=== PATIENT | male | born 1990 | race Caucasian/White ===

== ENCOUNTER 2017-10-02 18:42 | Emergency (ER) | payer SELFPAY ==
[2017-10-02 18:48] VITALS: BP 123/73
[2017-10-02] MEDS ORDERED: HYDROCODONE/ACETAMINOPHEN 5-325 MG (6 TAB/ER DISP) PO PRN (20:13)
[2017-10-02] MEDS ORDERED: CLINDAMYCIN HCL 150 MG CAPSULE PO ONE (20:13)
--- NOTE | 2017-10-02 20:16 | ER Document Report ---
HPI - HPI Patient complains to provider of: Dental pain Onset: Other - 3 days Onset/Duration: Persistent Quality of pain: Achy Pain Level: 3 Context: Patient had recent dental extraction 3 days ago and states that the adjacent tooth was broken during the procedure. Patient was not discharged with any pain medication or antibiotics. Patient states that he has had lower jaw swelling and increased dental pain. Patient is uncertain if he may have been having a fever or not. Patient is visiting here from out of town. Patient does plan to see his dentist in 5 days. Associated Symptoms: Other - Dental pain. denies: Fever Exacerbated by: Denies Relieved by: Denies Similar symptoms previously: No Recently seen / treated by doctor: Yes - ROS ROS below otherwise negative: Yes Systems Reviewed and Negative: Yes All other systems reviewed and negative - CONSTITUTIONAL Constitutional: DENIES: Fever - EENT Notes: Dental pain - RESPIRATORY Respiratory: DENIES: Coughing - GASTROINTESTINAL Gastrointestinal: DENIES: Nausea, Patient vomiting - REPRODUCTIVE Reproductive: DENIES: : - MUSCULOSKELETAL Musculoskeletal: DENIES: Neck Pain - DERM Skin Color: Normal Skin Problems: None Past Medical History - General Information source: Patient - Social History Smoking Status: Current Every Day Smoker Chew tobacco use (# tins/day): No Smoking Education Provided: Yes Frequency of alcohol use: None Drug Abuse: None Lives with: Family Family History: Arthritis, CVA. denies: CAD, COPD, DM, Hyperlipidemia, Hypertension, Malignancy, Thyroid Disfunction Patient has suicidal ideation: No Patient has homicidal ideation: No Renal/ Medical History: Reports: Hx Hydrocele. Denies: Hx Peritoneal Dialysis GI Medical History: Reports: Hx Irritable Bowel Musculoskeletal Medical History: Reports Hx Arthritis, Reports Hx Musculoskeletal Trauma Traumatic Medical History: Reports: Hx Fractures Past Surgical History: Reports: Hx Orthopedic Surgery - dislocated ankle repaired 2013 - Immunizations Immunizations up to date: Yes Hx Diphtheria, Pertussis, Tetanus Vaccination: Yes - 2014 Vertical Provider Document - CONSTITUTIONAL Agree With Documented VS: Yes Exam Limitations: No Limitations General Appearance: WD/WN, No Apparent Distress - INFECTION CONTROL TRAVEL OUTSIDE OF THE [place] IN LAST 30 DAYS: No - HEENT HEENT: Atraumatic, Normocephalic Mouth Diagram: 1 - Status post extraction, gingival inflammation, no drainable abscess Notes: Subtle swelling noted to the right mandible - NECK Neck: Normal Inspection, Supple. negative: Lymphadenopathy-Left, Lymphadenopathy-Right - RESPIRATORY Respiratory: Breath Sounds Normal, No Respiratory Distress - CARDIOVASCULAR Cardiovascular: Regular Rate, Regular Rhythm - BACK Back: Normal Inspection - MUSCULOSKELETAL/EXTREMETIES Musculoskeletal/Extremeties: MAEW - NEURO Level of Consciousness: Awake, Alert, Appropriate Motor/Sensory: No Motor Deficit - DERM Integumentary: Warm, Dry Course - Vital Signs Vital signs: Temp Pulse Resp BP Pulse Ox 98.9 F 83 16 123/73 100 10/02/17 18:46 10/02/17 18:46 10/02/17 18:46 10/02/17 18:46 10/02/17 18:46 Discharge - Discharge Clinical Impression: Pain, dental, hx recent dental extraction Condition: Stable Disposition: HOME, SELF-CARE Instructions: Clindamycin ([facility]), Dental Infection or Abscess ([facility]), Oral Narcotic Medication ([facility]) Additional Instructions: Return immediately for any new or worsening symptoms Followup with your primary care provider, call tomorrow to make a followup appointment Prescriptions: Clindamycin HCl [Cleocin 300 mg Capsule] 300 mg PO TID #21 capsule Naproxen [Naprosyn 250 Nmg Tablet] 1 tab PO BID #14 tablet Forms: Smoking Cessation Education Referrals: [facility] [Provider Group] - Follow up as needed
== END 2017-10-02 20:37 | disposition home or self-care (01) ==
LOC: ER 18:42
DX: K08.89 Other specified disorders of teeth and supporting structures (principal); R22.0 Localized swelling, mass and lump, head; F17.200 Nicotine dependence, unspecified, uncomplicated
CPT/HCPCS: 99282

== ENCOUNTER 2017-12-09 18:24 | Emergency (ER) | payer SELFPAY ==
--- NOTE | 2017-12-09 22:26 | ER Document Report ---
HPI - HPI Patient complains to provider of: Sore throat Pain Level: 4 Context: Patient is a 27-year-old presenting to the emergency department complaining of a sore throat for the last 3 days. Patient also complains of congestion. Patient denies fever or cough. Patient also denies nausea, vomiting, diarrhea. Patient denies chest pain, shortness of breath. Past medical history: None Medications: None allergies: None Surgical history: None Patient admits to everyday cigarette smoking, denies illicit drug use, denies EtOH use. - EENT EENT: REPORTS: Sore Throat - REPRODUCTIVE Reproductive: DENIES: : Past Medical History - General Information source: Patient - Social History Smoking Status: Current Every Day Smoker Frequency of alcohol use: None Drug Abuse: None Lives with: Family Family History: Arthritis, CVA. denies: CAD, COPD, DM, Hyperlipidemia, Hypertension, Malignancy, Thyroid Disfunction Patient has suicidal ideation: No Patient has homicidal ideation: No Renal/ Medical History: Reports: Hx Hydrocele. Denies: Hx Peritoneal Dialysis GI Medical History: Reports: Hx Irritable Bowel Musculoskeletal Medical History: Reports Hx Arthritis, Reports Hx Musculoskeletal Trauma Traumatic Medical History: Reports: Hx Fractures Past Surgical History: Reports: Hx Orthopedic Surgery - dislocated ankle repaired 2012 - Immunizations Immunizations up to date: Yes Hx Diphtheria, Pertussis, Tetanus Vaccination: Yes - 2014 Vertical Provider Document - CONSTITUTIONAL Agree With Documented VS: Yes Notes: GENERAL: Alert, interacts well. No acute distress. HEAD: Normocephalic, atraumatic. EYES: Pupils equal, round, and reactive to light. Extraocular movements intact. ENT: Oral mucosa moist, tongue midline. Nares patent, TM's intact, no erythema or bulging. Pharynx erythematous, tonsils +2 bilaterally, no exudate noted, no palatal petechiae. NECK: Full range of motion. Supple. Trachea midline. No lymphadenopathy appreciated. LUNGS: Clear to auscultation bilaterally, no wheezes, rales, or rhonchi. No respiratory distress. HEART: Regular rate and rhythm. No murmur ABDOMEN: Soft, non-tender. Non-distended. Bowel sounds present in all 4 quadrants. EXTREMITIES: Moves all 4 extremities spontaneously. No edema, normal radial and dorsalis pedis pulses bilaterally. No cyanosis. BACK: no cervical, thoracic, lumbar midline tenderness. No saddle anesthesia, normal distal neurovascular exam. NEUROLOGICAL: Alert and oriented x3. Normal speech. cranial nerves II through XII grossly intact. PSYCH: Normal affect, normal mood. SKIN: Warm, dry, normal turgor. No rashes or lesions noted. - INFECTION CONTROL TRAVEL OUTSIDE OF THE [place] IN LAST 30 DAYS: No Course - Re-evaluation Re-evalutation: 12/09/17 22:26 Patient's rapid strep came back positive. Will treat with amoxicillin. Return precautions discussed. - Vital Signs Vital signs: Temp Pulse Resp BP Pulse Ox 98.8 F 93 18 118/72 98 12/09/17 18:30 12/09/17 18:30 12/09/17 18:30 12/09/17 18:30 12/09/17 18:30 Discharge - Discharge Clinical Impression: Strep pharyngitis Condition: Stable Disposition: HOME, SELF-CARE Instructions: Strep Throat ([facility]) Prescriptions: Penicillin V Potassium [Penicillin Vk 500 mg Tablet] 500 mg PO BID #20 tablet
[2017-12-09] MEDS ORDERED: PENICILLIN V POTASSIUM 500 MG TABLET PO ONE (22:28)
[2017-12-09] MEDS ORDERED: IBUPROFEN 800 MG TABLET PO ONE (22:28)
[2017-12-09 22:38] VITALS: BP 118/75
== END 2017-12-09 22:38 | disposition home or self-care (01) ==
LOC: ER 18:24
DX: J02.0 Streptococcal pharyngitis (principal); F17.210 Nicotine dependence, cigarettes, uncomplicated
CPT/HCPCS: 87880; 99283

== ENCOUNTER 2018-03-26 20:34 | Emergency (ER) | payer SELFPAY ==
[2018-03-27] MEDS ORDERED: LIDOCAINE 2% VISCOUS SOLN 20 ML UDCUP PO ONE (01:33)
[2018-03-27] MEDS ORDERED: PENICILLIN V POTASSIUM 500 MG TABLET PO ONE (01:33)
--- NOTE | 2018-03-27 01:39 | ER Document Report ---
HPI - HPI Patient complains to provider of: tooth pain Time Seen by Provider: 03/27/18 01:06 Pain Level: 5 Context: 28 male with history of tooth infections presents for tooth pain that has been going on for the last few weeks. Pain got excruciatingly worse last 2 days prompting him to seek care. He denies fevers, complains of chills, denies trismus, denies any systemic type infection, is able to move his neck and denies neck stiffness, denies any foul taste in his mouth. Patient denies dysphagia, shortness of breath or chest pain, nausea or vomiting. - REPRODUCTIVE Reproductive: DENIES: : Past Medical History - Social History Smoking Status: Unknown if Ever Smoked Family History: Arthritis, CVA. denies: CAD, COPD, DM, Hyperlipidemia, Hypertension, Malignancy, Thyroid Disfunction Patient has suicidal ideation: No Patient has homicidal ideation: No Renal/ Medical History: Reports: Hx Hydrocele. Denies: Hx Peritoneal Dialysis GI Medical History: Reports: Hx Irritable Bowel Musculoskeletal Medical History: Reports Hx Arthritis, Reports Hx Musculoskeletal Trauma Traumatic Medical History: Reports: Hx Fractures Past Surgical History: Reports: Hx Orthopedic Surgery - dislocated ankle repaired 2013 - Immunizations Immunizations up to date: Yes Hx Diphtheria, Pertussis, Tetanus Vaccination: Yes - 2015 Vertical Provider Document - INFECTION CONTROL TRAVEL OUTSIDE OF THE [place] IN LAST 30 DAYS: No - HEENT Mouth Diagram: 1 - Broken and decayed numbers 30 and 31 teeth. Associated gingivitis surrounding the teeth on the buccal side. No evidence of purulent discharge. Course - Re-evaluation Re-evalutation: 03/27/18 01:35 Presentation is most consistent with likely an infected tooth. Airway is patent. Vitals within normal limits. Patient is able swallow without any difficulty. There is no significant facial swelling. No evidence of [place] angina, apical abscess, or airway obstruction. Patient will be started on antibiotics. I've instructed to follow-up with dentistry as earliest ability for definitive management. At this time will discharge with return precautions and follow-up recommendations. Verbal discharge instructions given a the bedside and opportunity for questions given. Medication warnings reviewed. Patient is in agreement with this plan and has verbalized understanding of return precautions and the need for primary care follow-up in the next 24-72 h ours. - Vital Signs Vital signs: Temp Pulse Resp BP Pulse Ox 98.4 F 103 H 18 117/77 100 03/26/18 20:36 03/26/18 20:36 03/26/18 20:36 03/26/18 20:36 03/26/18 20:36 Discharge - Discharge Clinical Impression: Tooth infection Condition: Good Disposition: HOME, SELF-CARE Instructions: [facility], Penicillin V K ([facility]), Toothache ([facility]) Additional Instructions: You have been seen for dental pain. It is very important that you follow-up with a dentist for definitive care. Please return if you develop fever greater than 101, swelling in your face, vomiting, difficulty breathing or swallowing, or any other symptoms that are concerning to you. For pain you should take ibuprofen 600 mg every 6 hours as needed. Prescriptions: Penicillin V Potassium [Penicillin Vk 500 mg Tablet] 500 mg PO BID #14 tablet
[2018-03-27 01:57] VITALS: BP 113/78
== END 2018-03-27 01:58 | disposition home or self-care (01) ==
LOC: ER 20:34
DX: K04.7 Periapical abscess without sinus (principal); K08.89 Other specified disorders of teeth and supporting structures
CPT/HCPCS: 99282; J3490

== ENCOUNTER 2018-05-23 16:08 | Emergency (ER) | payer SELFPAY ==
--- NOTE | 2018-05-23 17:14 | ER Document Report ---
ED Medical Screen (RME) - General Chief Complaint: Chest Pain Stated Complaint: CHEST PAIN Time Seen by Provider: 05/23/18 17:05 Mode of Arrival: Ambulatory Information source: Patient Notes: Patient is an otherwise healthy 20-year-old male who presents with midsternal chest pain that has been ongoing for 1 year with worsening over the last few months. He states the last few days is the worse it has ever been. He reports occasional left arm pains in the bicep area. He states there is never been any nausea but does report occasional shortness of breath and wakes up in a cold sweat sometimes at night. Patient denies any history of any drug use to include cocaine. Denies any past medical history, does not take any medications daily and has no drug allergies. Exam: Lung sounds clear to auscultation bilaterally. Heart sounds S1-S2 present with no ectopy noted. I have greeted and performed a rapid initial assessment of this patient. A comprehensive ED assessment and evaluation of the patient, analysis of test results and completion of the medical decision making process will be conducted by additional ED providers. Dictation of this chart was performed using voice recognition software; therefore, there may be some unintended grammatical errors. TRAVEL OUTSIDE OF THE [place] IN LAST 30 DAYS: No - Related Data Allergies/Adverse Reactions: No Known Allergies Allergy (Verified 03/26/18 20:35) Past Medical History - Social History Frequency of alcohol use: None Drug Abuse: None Renal/ Medical History: Reports: Hx Hydrocele. Denies: Hx Peritoneal Dialysis GI Medical History: Reports: Hx Irritable Bowel Musculoskeltal Medical History: Reports Hx Arthritis, Reports Hx Musculoskeletal Trauma Traumatic Medical History: Reports: Hx Fractures Past Surgical History: Reports: Hx Orthopedic Surgery - dislocated ankle repaired 2012 - Immunizations Immunizations up to date: Yes Hx Diphtheria, Pertussis, Tetanus Vaccination: Yes - 2014 Physical Exam - Vital signs Vitals: Temp Pulse Resp BP Pulse Ox 98.7 F 93 18 128/73 H 99 05/23/18 16:23 05/23/18 16:23 05/23/18 16:23 05/23/18 16:23 05/23/18 16:23 Course - Vital Signs Vital signs: Temp Pulse Resp BP Pulse Ox 98.7 F 93 18 128/73 H 99 05/23/18 16:23 05/23/18 16:23 05/23/18 16:23 05/23/18 16:23 05/23/18 16:23
--- NOTE | 2018-05-23 17:46 | RADIOLOGY REPORT (SQ) ---
EXAM DESCRIPTION: CHEST 2 VIEWS COMPLETED DATE/TIME: 05/23/2018 5:33 pm REASON FOR STUDY: chest pain COMPARISON: None. EXAM PARAMETERS: NUMBER OF VIEWS: two views TECHNIQUE: Digital Frontal and Lateral radiographic views of the chest acquired. RADIATION DOSE: NA LIMITATIONS: none FINDINGS: LUNGS AND PLEURA: No opacities, masses or pneumothorax. No pleural effusion. MEDIASTINUM AND HILAR STRUCTURES: No masses or contour abnormalities. HEART AND VASCULAR STRUCTURES: Heart normal size. No evidence for failure. BONES: No acute findings. HARDWARE: None in the chest. OTHER: No other significant finding. IMPRESSION: NO ACUTE RADIOGRAPHIC FINDING IN THE CHEST. TECHNICAL DOCUMENTATION: JOB ID: [id number] [employer]- All Rights Reserved Reading location - IP/workstation name: [email or web address]
--- NOTE | 2018-05-23 18:36 | EKG REPORT ---
SEVERITY:- NORMAL ECG - SINUS RHYTHM : Confirmed by: Guanakito Day MD 23-May-2018 18:34:50
--- NOTE | 2018-05-23 20:23 | ER Document Report ---
Addendum entered and electronically signed by RAMSEY MENARD PA-C 05/23/18 22:47: Discharge - Discharge Clinical Impression: Atypical chest pain Condition: Good Disposition: HOME, SELF-CARE Instructions: Chest Pain of Unclear Cause ([facility]) Additional Instructions: I will give you to clinics to consider where you will be able to do further workup and possibly even do the stress test. I will also give the name of a rock drill operator locally. He get worsening symptoms before you can see anybody and you feel you need to be seen, you may return to the ED. Prescriptions: Tramadol HCl/Acetaminophen [Ultracet 37.5 mg/325 mg Tablet] 1 each PO Q6HP PRN #12 tablet PRN Reason: Referrals: [facility] [Provider Group] - Follow up as needed [facility] [Provider Group] - Follow up as needed GENESIS JEROME MD [ACTIVE STAFF] - Follow up as needed Print Language: Korean Original Note: ED General - General Chief Complaint: Chest Pain Stated Complaint: CHEST PAIN Time Seen by Provider: 05/23/18 17:05 Mode of Arrival: Ambulatory Information source: Patient TRAVEL OUTSIDE OF THE [place] IN LAST 30 DAYS: No - HPI Patient complains to provider of: Chest pain Onset: Other - 1 year Onset/Duration: Intermittent Quality of pain: Sharp, Stabbing Severity: Severe Pain Level: 3 Associated symptoms: None Exacerbated by: Denies Relieved by: Denies Similar symptoms previously: No Recently seen / treated by doctor: No Notes: 28-year-old male coming in today with chest pain that has had intermittently for the past year. Over the past 3 days he started to have increasing intensity of sharp midsternal chest pain that radiates to his back. It is also worse with deep breathing. Also smokes cigarettes daily - Related Data Allergies/Adverse Reactions: No Known Allergies Allergy (Verified 03/26/18 20:35) Past Medical History - General Information source: Patient - Social History Smoking Status: Current Every Day Smoker Frequency of alcohol use: None Drug Abuse: None Family History: Arthritis, CVA. denies: CAD, COPD, DM, Hyperlipidemia, Hypertension, Malignancy, Thyroid Disfunction Patient has suicidal ideation: No Patient has homicidal ideation: No Renal/ Medical History: Reports: Hx Hydrocele. Denies: Hx Peritoneal Dialysis GI Medical History: Reports: Hx Irritable Bowel Musculoskeletal Medical History: Reports Hx Arthritis, Reports Hx Musculoskeletal Trauma Traumatic Medical History: Reports: Hx Fractures Past Surgical History: Reports: Hx Orthopedic Surgery - dislocated ankle repaired 2012 - Immunizations Immunizations up to date: Yes Hx Diphtheria, Pertussis, Tetanus Vaccination: Yes - 2014 Review of Systems - Review of Systems Notes: Constitutional: No fevers. No chills. EENT: No eye redness. No eye pain. No ear pain. No sore throat. Cardiovascular: Positive for chest pain. No palpitations. Respiratory: No cough. No shortness of breath. No respiratory distress. Gastrointestinal: No abdominal pain. No nausea, vomiting, or diarrhea. Genitourinary: Atraumatic. No lesions. No pain. No discharge. Musculoskeletal: Atraumatic. No swelling. No deformities. Skin: No rash or lesions. Lymphatic: No swollen lymph nodes. Neurologic: No headache. No syncope. Psychiatric: No suicidal or homicidal ideation. Physical Exam - Vital signs Vitals: Temp Pulse Resp BP Pulse Ox 98.7 F 93 18 128/73 H 99 05/23/18 16:23 05/23/18 16:23 05/23/18 16:23 05/23/18 16:23 05/23/18 16:23 - Notes Notes: General: Well-developed, well-nourished. In no acute distress. Non-toxic appearing. Cardiac: Well-perfused. Regular rate and rhythm. No murmurs, rubs, or gallops. Pulmonary: No respiratory distress. No cyanosis. Bilateral lung garza are clear to auscultation. Abdominal: Non-distended. Non-rigid. Bowels sounds are present in all four quadrants. No guarding or rebound. HEENT: Head is atraumatic. Conjunctivae not reddened. No tearing. PERRL. EOMI. Orbits atraumatic. No periorbital swelling or erythema. Oropharynx is without erythema, swelling, or exudates. Neck: Supple. No adenopathy. No meningismus. Dermatologic: Warm with good turgor. No rash. Atraumatic. Chest: Atraumatic. No chest wall tenderness to palpation. Musculoskeletal: Moves all extremities well. No range of motion deficits. no muscular or joint tenderness. No paraspinal muscle tenderness. no midline spinal tenderness or step-off. There is no chest wall tenderness to palpation. Genitourinary: Examination deferred Neurologic: No gross neurologic deficits. Psychiatric: Normal mood. Course - Re-evaluation Re-evalutation: 05/23/18 20:21 Most likely this is atypical chest pain however will do the typical workup. Heart score is 1. In any event, I do not think the patient can feel totally better about this until he sees somebody for a stress test. 05/23/18 22:06 Workup is negative. I think this is probably chest wall or pleuritic in nature. I will refer to cardiology - Vital Signs Vital signs: Temp Pulse Resp BP Pulse Ox 98.7 F 93 18 128/73 H 99 05/23/18 16:23 05/23/18 16:23 05/23/18 16:23 05/23/18 16:23 05/23/18 16:23 - Laboratory Result Diagrams: 05/23/18 20:24 05/23/18 20:24 Laboratory results interpreted by me: 05/23/18 20:24 Chloride 109 H Total Protein 6.2 L - Diagnostic Test Radiology reviewed: Reports reviewed - EKG Interpretation by [facility] EKG shows normal: Sinus rhythm, Stone, Intervals, QRS Complexes, ST-T Waves Discharge - Discharge Clinical Impression: Atypical chest pain Condition: Good Disposition: HOME, SELF-CARE Instructions: Chest Pain of Unclear Cause ([facility]) Additional Instructions: I will give you to clinics to consider where you will be able to do further workup and possibly even do the stress test. I will also give the name of a rock drill operator locally. He get worsening symptoms before you can see anybody and you feel you need to be seen, you may return to the ED. Referrals: GENESIS JEROME MD [ACTIVE STAFF] - Follow up as needed [facility] [Provider Group] - Follow up as needed [facility] [Provider Group] - Follow up as needed Print Language: Korean
[2018-05-23] MEDS ORDERED: HYDROCODONE/ACETAMINOPHEN 5-325 MG TABLET PO ONE (20:29)
[2018-05-23 20:38] LABS: ABSOLUTE BASOPHILS # (AUTO) 0.1 10^3/uL (0.0-0.2); ABSOLUTE EOSINOPHILS # (AUTO) 0.1 10^3/uL (0.0-0.6); ABSOLUTE LYMPHOCYTES (AUTO) 2.3 10^3/uL (0.5-4.7); ABSOLUTE MONOCYTES (AUTO) 0.6 10^3/uL (0.1-1.4); ABSOLUTE NEUT (AUTO) 5.6 10^3/uL (1.7-8.2); BASOPHILS % (AUTO) 0.7 % (0-2); EOSINOPHILS % (AUTO) 1.6 % (0-6); HEMATOCRIT 43.8 % (37.9-51.0); HEMOGLOBIN 15.1 g/dL (13.5-17.0); LYMPHOCYTES % (AUTO) 26.1 % (13-45); MEAN CORPUSCULAR HEMOGLOBIN 30.5 pg (27.0-33.4); MEAN CORPUSCULAR HGB CONC 34.4 g/dL (32.0-36.0); MEAN CORPUSCULAR VOLUME 89 fl (80-97); PLATELET COUNT 287 10^3/uL (150-450); RED BLOOD COUNT 4.94 10^6/uL (4.35-5.55); RED CELL DISTRIBUTION WIDTH 12.9 % (11.5-14.0); SEGMENTED NEUTROPHILS % (AUTO) 64.6 % (42-78); TOTAL CELLS COUNTED % (AUTO) 100 %; WHITE BLOOD COUNT 8.6 10^3/uL (4.0-10.5)
[2018-05-23 20:51] LABS: ALANINE AMINOTRANSFERASE 23 U/L (21-72); ALKALINE PHOSPHATASE 50 U/L (38-126); ANION GAP 7 (5-19); ASPARTATE AMINO TRANSFERASE 17 U/L (17-59); BILIRUBIN,DIRECT 0.2 mg/dL (0.0-0.4); BILIRUBIN,TOTAL 0.4 mg/dL (0.2-1.3); BLOOD UREA NITROGEN 13 mg/dL (7-20); CALCIUM 9.6 mg/dL (8.4-10.2); CARBON DIOXIDE 26 mmol/L (22-30); CHLORIDE 109 mmol/L (98-107); GLUCOSE 96 mg/dL (75-110); POTASSIUM 4.2 mmol/L (3.6-5.0); SODIUM 142.2 mmol/L (137-145); TOTAL PROTEIN 6.2 g/dL (6.3-8.2)
[2018-05-23 22:35] VITALS: BP 107/80
== END 2018-05-23 23:03 | disposition home or self-care (01) ==
LOC: ER 16:08
DX: R07.89 Other chest pain (principal); F17.210 Nicotine dependence, cigarettes, uncomplicated
CPT/HCPCS: 36415; 71046; 80053; 84484; 85025; 93005; 93010; 99285

== ENCOUNTER 2018-11-04 17:18 | Emergency (ER) | payer SELFPAY ==
[2018-11-04] MEDS ORDERED: KETOROLAC TROMETHAMINE INJ/PF 30 MG/1 ML SDV IV ONE (17:49)
[2018-11-04] MEDS ORDERED: PROCHLORPERAZINE EDISYLATE INJ 10 MG/2 ML VIAL IV ONE (17:49)
--- NOTE | 2018-11-04 17:52 | ER Document Report ---
ED Medical Screen (RME) - General Chief Complaint: Eye Problem Stated Complaint: EYE PAIN Time Seen by Provider: 11/04/18 17:42 TRAVEL OUTSIDE OF THE [place] IN LAST 30 DAYS: No - HPI Notes: 11/04/18 17:50 Patient is a 28-year-old male who presents with multiple complaints. Patient has been having left eye blurring and spots in his vision as well as "floaters" for the past couple days with a left-sided headache. Patient states that this is not the worst headache of his life and it did not start as a thunderclap. Patient has had migraines in the past. He is also complaining of having night sweats every night for the past 2 weeks as well as left lower abdominal soreness. Pain is not sharp and does not radiate. Denies fever, neck pain, URI, CP, SOB, n/v/d, dysuria, back pain, or rash. I have treated and performed a rapid initial assessment of this patient. A comprehensive ED assessment and evaluation of the patient, analysis of test results and completion of medical decision making process will be conducted by additional ED providers. PHYSICAL EXAMINATION: GENERAL: Well-appearing, well-nourished and in no acute distress. A&Ox4. Answers questions appropriately. Eyes: PERRLA, EOMI b/l. no significant redness LUNGS: Breath sounds clear to auscultation bilaterally and equal. No wheezes rales or rhonchi. HEART: Regular rate and rhythm without murmurs, rubs, gallops. ABDOMEN: Soft, nondistended abdomen. No guarding, no rebound. Normal bowel sounds present. No CVA tenderness bilaterally. + mild left lower/mid tenderness (cannot elicit thorough abd exam w/o bed, however). Extremities: No cyanosis, clubbing, or edema b/l. NEUROLOGICAL: Normal speech, normal gait. Cranial nerves grossly intact PSYCH: Normal mood, normal affect. - Related Data Allergies/Adverse Reactions: No Known Allergies Allergy (Verified 11/04/18 17:23) Past Medical History - Social History Chew tobacco use (# tins/day): No Frequency of alcohol use: Social Renal/ Medical History: Reports: Hx Hydrocele. Denies: Hx Peritoneal Dialysis GI Medical History: Reports: Hx Irritable Bowel Musculoskeltal Medical History: Reports Hx Arthritis, Reports Hx Musculoskeletal Trauma Traumatic Medical History: Reports: Hx Fractures Past Surgical History: Reports: Hx Orthopedic Surgery - dislocated ankle repaired 2013 - Immunizations Immunizations up to date: Yes Hx Diphtheria, Pertussis, Tetanus Vaccination: Yes - 2014 Physical Exam - Vital signs Vitals: Temp Pulse Resp BP Pulse Ox 98.2 F 81 14 110/75 97 11/04/18 17:30 11/04/18 17:30 11/04/18 17:30 11/04/18 17:30 11/04/18 17:30 Course - Vital Signs Vital signs: Temp Pulse Resp BP Pulse Ox 98.2 F 81 14 110/75 97 11/04/18 17:30 11/04/18 17:30 11/04/18 17:30 11/04/18 17:30 11/04/18 17:30
[2018-11-04 18:47] LABS: ABSOLUTE EOSINOPHILS # (AUTO) 0.1 10^3/uL (0.0-0.6); ABSOLUTE LYMPHOCYTES (AUTO) 2.3 10^3/uL (0.5-4.7); ABSOLUTE MONOCYTES (AUTO) 0.8 10^3/uL (0.1-1.4); BASOPHILS % (AUTO) 0.6 % (0-2); EOSINOPHILS % (AUTO) 1.2 % (0-6); HEMATOCRIT 43.1 % (37.9-51.0); HEMOGLOBIN 14.6 g/dL (13.5-17.0); MEAN CORPUSCULAR HEMOGLOBIN 29.7 pg (27.0-33.4); MEAN CORPUSCULAR HGB CONC 33.9 g/dL (32.0-36.0); MEAN CORPUSCULAR VOLUME 88 fl (80-97); PLATELET COUNT 331 10^3/uL (150-450); RED BLOOD COUNT 4.92 10^6/uL (4.35-5.55); RED CELL DISTRIBUTION WIDTH 12.7 % (11.5-14.0); SEGMENTED NEUTROPHILS % (AUTO) 55.2 % (42-78); TOTAL CELLS COUNTED % (AUTO) 100 %; WHITE BLOOD COUNT 7.3 10^3/uL (4.0-10.5)
[2018-11-04 18:55] LABS: APPEARANCE,URINE CLEAR; BILIRUBIN,URINE NEGATIVE (NEGATIVE); COLOR,URINE YELLOW; GLUCOSE, URINE NEGATIVE (NEGATIVE); KETONES,URINE NEGATIVE (NEGATIVE); LEUKOCYTE ESTERASE,URINE NEGATIVE (NEGATIVE); NITRITE,URINE NEGATIVE (NEGATIVE); PROTEIN,URINE NEGATIVE (NEGATIVE); URINE SPECIFIC GRAVITY 1.024
[2018-11-04 19:04] LABS: ALBUMIN 4.1 g/dL (3.5-5.0); ALKALINE PHOSPHATASE 78 U/L (38-126); ANION GAP 8 (5-19); ASPARTATE AMINO TRANSFERASE 19 U/L (17-59); BILIRUBIN,DIRECT 0.2 mg/dL (0.0-0.4); BILIRUBIN,TOTAL 0.5 mg/dL (0.2-1.3); BLOOD UREA NITROGEN 10 mg/dL (7-20); CALCIUM 9.3 mg/dL (8.4-10.2); CARBON DIOXIDE 30 mmol/L (22-30); CHLORIDE 102 mmol/L (98-107); GLUCOSE 106 mg/dL (75-110); TOTAL PROTEIN 6.9 g/dL (6.3-8.2)
--- NOTE | 2018-11-04 19:07 | ER Document Report ---
ED General - General Chief Complaint: Eye Problem Stated Complaint: EYE PAIN Time Seen by Provider: 11/04/18 17:42 Primary Care Provider: DASH ANTOINE MD [ACTIVE STAFF] - Follow up as needed (Please call tomorrow for an appointment this week, preferably tomorrow) TRAVEL OUTSIDE OF THE [place] IN LAST 30 DAYS: No - HPI Notes: Patient presents the emergency department for multiple complaints. He states that roughly 3 days ago he woke up that he had seen white and black spots in his thigh. Denies any recent traumas or falls or any foreign bodies in his eye. Does not have any pain in his eye. He states that caused to become worse over the last 2 days which prompted to come to emergency department. He also has been staying has been having night sweats for the last 2 weeks. He denies any recent nausea vomiting. He also stated he has been having intermittent left- sided abdominal pain and absence of any dysuria. No known medical problems does not take any medications on a daily basis - Related Data Allergies/Adverse Reactions: No Known Allergies Allergy (Verified 11/04/18 17:23) Past Medical History - Social History Smoking Status: Current Every Day Smoker Chew tobacco use (# tins/day): No Frequency of alcohol use: Social Family History: Arthritis, CVA. denies: CAD, COPD, DM, Hyperlipidemia, Hypertension, Malignancy, Thyroid Disfunction Patient has suicidal ideation: No Patient has homicidal ideation: No Renal/ Medical History: Reports: Hx Hydrocele. Denies: Hx Peritoneal Dialysis GI Medical History: Reports: Hx Irritable Bowel Musculoskeletal Medical History: Reports Hx Arthritis, Reports Hx Musculoskeletal Trauma Traumatic Medical History: Reports: Hx Fractures Past Surgical History: Reports: Hx Orthopedic Surgery - dislocated ankle repaired 2013 - Immunizations Immunizations up to date: Yes Hx Diphtheria, Pertussis, Tetanus Vaccination: Yes - 2014 Review of Systems - Review of Systems Constitutional: No symptoms reported EENT: See HPI Cardiovascular: No symptoms reported Respiratory: See HPI Gastrointestinal: See HPI Genitourinary: No symptoms reported Male Genitourinary: No symptoms reported Musculoskeletal: No symptoms reported Skin: No symptoms reported Hematologic/Lymphatic: No symptoms reported Neurological/Psychological: No symptoms reported Physical Exam - Vital signs Vitals: Temp Pulse Resp BP Pulse Ox 98.2 F 81 14 110/75 97 11/04/18 17:30 11/04/18 17:30 11/04/18 17:30 11/04/18 17:30 11/04/18 17:30 - General General appearance: Appears well - HEENT Head: Normocephalic, Atraumatic Eyes: Normal. No: Periorbital edema Conjunctiva: Normal. No: Injected, Purulent discharge Cornea: Normal Extraocular movements intact: Yes Eyelashes: Normal Pupils: PERRL Anterior chamber: Normal. No: Hyphema Visual garza normal: Yes Course - Re-evaluation Re-evalutation: 11/04/18 19:12 Benign eye exam pending visual acuity at this time. No evidence of hyphema or hypopyon there is no injection of the entire globe no pain with ocular movement no proptosis. His visual garza are normal. Pupils equal round reactive to light no evidence of glaucoma. 11/04/18 19:32 With lamp reveals no corneal abrasion or foreign bodies. Tonometry pen shows intraocular pressure 14. Patient's visual acuity is 20/20 in both eyes. Will provide a referral to robotics software engineer Dr. Antoine as he is election clerk today. Instructed patient to follow-up tomorrow for funduscopic examination and further evaluation by an robotics software engineer. All the patient's labs are unremarkable. 11/04/18 19:[address] Antoine who stated if the patient calls tomorrow that he will get him in for evaluation. 11/04/18 19:38 - Vital Signs Vital signs: Temp Pulse Resp BP Pulse Ox 98.2 F 81 14 110/75 97 11/04/18 17:30 11/04/18 17:30 11/04/18 17:30 11/04/18 17:30 11/04/18 17:30 - Laboratory Result Diagrams: 11/04/18 18:23 11/04/18 18:23 Laboratory results interpreted by me: 11/04/18 18:23 Urine Urobilinogen 2.0 H Urine Ascorbic Acid 40 H Discharge - Discharge Clinical Impression: Subjective visual disturbance, left eye, Night sweats Condition: Good Disposition: HOME, SELF-CARE Additional Instructions: Please follow-up with Dr. Antoine, the robotics software engineer referral provided tomorrow. Also provided community care in clinic referral for further evaluation if your sweats continue. Referrals: DASH ANTOINE MD [ACTIVE STAFF] - Follow up as needed (Please call tomorrow for an appointment, I spoke to Dr. Antoine and he will see you tomorrow)
[2018-11-04 19:15] LABS: POTASSIUM 4.9 mmol/L (3.6-5.0)
[2018-11-04 20:07] VITALS: BP 102/58
== END 2018-11-04 20:11 | disposition home or self-care (01) ==
LOC: ER 17:18
DX: H53.8 Other visual disturbances (principal); R61 Generalized hyperhidrosis; R10.9 Unspecified abdominal pain; F17.200 Nicotine dependence, unspecified, uncomplicated
CPT/HCPCS: 99284; 96374; 96375; 36415; 85025; 80053; 81001; J1885; J0780

== ENCOUNTER → 2018-11-06 | Outpatient (CLI) | payer SELFPAY ==
[2018-11-06 13:22] LABS: ABSOLUTE BASOPHILS # (AUTO) 0.1 10^3/uL (0.0-0.2); ABSOLUTE EOSINOPHILS # (AUTO) 0.1 10^3/uL (0.0-0.6); ABSOLUTE LYMPHOCYTES (AUTO) 2.3 10^3/uL (0.5-4.7); ABSOLUTE MONOCYTES (AUTO) 0.5 10^3/uL (0.1-1.4); ABSOLUTE NEUT (AUTO) 4.4 10^3/uL (1.7-8.2); BASOPHILS % (AUTO) 1.2 % (0-2); EOSINOPHILS % (AUTO) 1.3 % (0-6); HEMATOCRIT 45.8 % (37.9-51.0); HEMOGLOBIN 15.2 g/dL (13.5-17.0); MEAN CORPUSCULAR HEMOGLOBIN 29.2 pg (27.0-33.4); MEAN CORPUSCULAR HGB CONC 33.3 g/dL (32.0-36.0); MEAN CORPUSCULAR VOLUME 88 fl (80-97); MONOCYTES % (AUTO) 6.9 % (3-13); PLATELET COUNT 391 10^3/uL (150-450); RED BLOOD COUNT 5.22 10^6/uL (4.35-5.55); RED CELL DISTRIBUTION WIDTH 13.1 % (11.5-14.0); SEGMENTED NEUTROPHILS % (AUTO) 59.6 % (42-78); TOTAL CELLS COUNTED % (AUTO) 100 %; WHITE BLOOD COUNT 7.4 10^3/uL (4.0-10.5)
[2018-11-06 14:12] LABS: ALKALINE PHOSPHATASE 73 U/L (38-126); ASPARTATE AMINO TRANSFERASE 22 U/L (17-59); BILIRUBIN,DIRECT 0.1 mg/dL (0.0-0.4); BILIRUBIN,TOTAL 0.5 mg/dL (0.2-1.3); TOTAL PROTEIN 6.5 g/dL (6.3-8.2)
[2018-11-07 10:51] LABS: HEPATITIS B CORE AB TOT Negative (Negative)
[2018-11-08 08:49] LABS: LYME DISEASE IGM AB <0.80 index (0.00-0.79)
== END ==
LOC: LAB 12:55
PROVIDERS: ATTEND Internal Medicine
DX: H30.892 Other chorioretinal inflammations, left eye (principal)
CPT/HCPCS: 36415; 80076; 82164; 85025; 86038; 86480; 86592; 86617; 86618; 86704

== ENCOUNTER 2018-11-09 23:53 | Emergency (ER) | payer SELFPAY ==
[2018-11-10] MEDS ORDERED: HYDROCODONE/ACETAMINOPHEN 5-325 MG (6 TAB/ER DISP) PO PRN (01:15)
--- NOTE | 2018-11-10 01:18 | ER Document Report ---
HPI - HPI Time Seen by Provider: 11/10/18 00:40 Pain Level: 5 Notes: This is an otherwise healthy 28-year-old male presenting to the emergency department with complaint of eye pain. Patient reports he had an surgery to his left eye 4 days ago at [facility]. Prior to this he was actually seen in this emergency department and was told to follow-up with ophthalmology which he did which led to him having the surgery for a fungal infection of the eye. Patient reports that his grandmother accidentally dropped his bottle of medication in the sink damaging it. He reports that he was taking oxycodone 5 mg which was significantly helping with his pain. He does report that he called the on-call exterminator helper termite for his group in [facility] who was able to move his appointment from Saturday to Saturday however that is still 2 days away from now. He is requesting additional pain medication. He denies any new trauma to his eye. - REPRODUCTIVE Reproductive: DENIES: : Past Medical History - General Information source: Patient - Social History Smoking Status: Current Every Day Smoker Chew tobacco use (# tins/day): No Frequency of alcohol use: None Drug Abuse: None Family History: Arthritis, CVA. denies: CAD, COPD, DM, Hyperlipidemia, Hypertension, Malignancy, Thyroid Disfunction Patient has suicidal ideation: No Patient has homicidal ideation: No Renal/ Medical History: Reports: Hx Hydrocele. Denies: Hx Peritoneal Dialysis GI Medical History: Reports: Hx Irritable Bowel Musculoskeletal Medical History: Reports Hx Arthritis, Reports Hx Musculoskeletal Trauma Traumatic Medical History: Reports: Hx Fractures Past Surgical History: Reports: Hx Orthopedic Surgery - dislocated ankle repaired 2012, Other - Ophthalmic surgery - Immunizations Immunizations up to date: Yes Hx Diphtheria, Pertussis, Tetanus Vaccination: Yes - 2014 [facility] Provider Document - CONSTITUTIONAL Notes: PHYSICAL EXAMINATION: GENERAL: Well-appearing, well-nourished and in no acute distress. HEAD: Atraumatic, normocephalic. EYES: Pupils equal round extraocular movements intact, conjunctiva injected, swelling noted to left eye. ENT: Nares patent NECK: Normal range of motion LUNGS: No respiratory distress Musculoskeletal: Normal range of motion NEUROLOGICAL: Normal speech, normal gait. PSYCH: Normal mood, normal affect. SKIN: Warm, Dry, normal turgor, no rashes or lesions noted. - INFECTION CONTROL TRAVEL OUTSIDE OF THE [place] IN LAST 30 DAYS: No Course - Re-evaluation Re-evalutation: Patient was researched in the [place] controlled substance database, no evidence of inappropriate use of opioids. Patient did have a prescription written last week by ophthalmology for 5 mg oxycodone tablets. He denies any new trauma to his eye. He does have a follow-up appointment scheduled for 2 days from now. I will write him a new prescription for 2 days worth of oxycodone. Patient understands that we do not treat chronic pain however this situation seems to warrant appropriate pain control. Patient verbalizes understanding and agreement with this plan. The patient's emergency department workup and current diagnosis were explained to the patient and or family. Follow-up instructions were provided. Medications if prescribed were discussed. Instructions for when to return to the emergency department including specific worrisome symptoms were discussed with the patient and/or family. - Vital Signs Vital signs: Temp Pulse Resp BP Pulse Ox 99.1 F 117 H 18 130/84 H 99 11/10/18 00:02 11/10/18 00:02 11/10/18 00:02 11/10/18 00:02 11/10/18 00:02 Discharge - Discharge Clinical Impression: Prescription refill Eye pain Qualifiers: Laterality: left Qualified Code(s): H57.12 - Ocular pain, left eye Condition: Stable Disposition: HOME, SELF-CARE Additional Instructions: You were seen in the emergency department for a refill of your medication. It is very important that you keep the follow-up appointment you have with your exterminator helper termite for Saturday. I have refilled your medication for you. Please continue to take all medications as prescribed by your eye surgeon. Prescriptions: Oxycodone HCl/Acetaminophen [Percocet 5-325 mg Tablet] 1 tab PO Q6H PRN #10 tablet PRN Reason:
[2018-11-10 01:48] VITALS: BP 123/82
== END 2018-11-10 01:48 | disposition home or self-care (01) ==
LOC: ER 23:53
DX: H57.12 Ocular pain, left eye (principal); Z76.0 Encounter for issue of repeat prescription; Z98.890 Other specified postprocedural states; F17.200 Nicotine dependence, unspecified, uncomplicated
CPT/HCPCS: 99283

== ENCOUNTER 2019-01-30 18:06 | Emergency (ER) | payer MEDICAID ==
[2019-01-30] MEDS ORDERED: CLINDAMYCIN HCL 150 MG CAPSULE PO ONE (19:13)
[2019-01-30 19:14] VITALS: BP 150/78
[2019-01-30] MEDS ORDERED: HYDROCODONE/ACETAMINOPHEN 5-325 MG (6 TAB/ER DISP) PO PRN (19:14)
--- NOTE | 2019-01-30 19:17 | ER Document Report ---
HPI - HPI Patient complains to provider of: toothache Time Seen by Provider: 01/30/19 19:09 Onset: Yesterday Onset/Duration: Worse Quality of pain: Achy Pain Level: 4 Context: Patient states that he had a tooth extracted yesterday. Patient states he was placed on penicillin. Patient complains of left lower jaw swelling and increased pain. No fever nausea or vomiting. Associated Symptoms: denies: Fever, Nausea, Vomiting, Sore throat Exacerbated by: Denies Relieved by: Denies Similar symptoms previously: No Recently seen / treated by doctor: Yes - ROS ROS below otherwise negative: Yes Systems Reviewed and Negative: Yes All other systems reviewed and negative - CONSTITUTIONAL Constitutional: DENIES: Fever, Chills - EENT EENT: DENIES: Ear Pain Notes: Dental pain from extraction site - RESPIRATORY Respiratory: DENIES: Coughing - GASTROINTESTINAL Gastrointestinal: DENIES: Nausea, Patient vomiting - DERM Skin Problems: None Past Medical History - General Information source: Patient - Social History Smoking Status: Current Every Day Smoker Chew tobacco use (# tins/day): No Frequency of alcohol use: None Drug Abuse: None Occupation: Construction Lives with: Family Family History: Arthritis, CVA. denies: CAD, COPD, DM, Hyperlipidemia, Hypertension, Malignancy, Thyroid Disfunction Patient has suicidal ideation: No Patient has homicidal ideation: No Renal/ Medical History: Reports: Hx Hydrocele. Denies: Hx Peritoneal Dialysis GI Medical History: Reports: Hx Irritable Bowel Musculoskeletal Medical History: Reports Hx Arthritis, Reports Hx Musculoskeletal Trauma Traumatic Medical History: Reports: Hx Fractures Past Surgical History: Reports: Hx Orthopedic Surgery - dislocated ankle repaired 2012, Other - Ophthalmic surgery - Immunizations Immunizations up to date: Yes Hx Diphtheria, Pertussis, Tetanus Vaccination: Yes - 2014 [employer] Provider Document - CONSTITUTIONAL Agree With Documented VS: Yes Exam Limitations: No Limitations General Appearance: WD/WN, No Apparent Distress - INFECTION CONTROL TRAVEL OUTSIDE OF THE [place] IN LAST 30 DAYS: No - HEENT HEENT: Atraumatic, Normocephalic Mouth Diagram: 1 - Tenderness, gingival inflammation at extraction site, no sublingual or submental swelling, no trismus Notes: Subtle swelling noted along left mandibular area - NECK Neck: Normal Inspection, Supple - RESPIRATORY Respiratory: Breath Sounds Normal, No Respiratory Distress - CARDIOVASCULAR Cardiovascular: Regular Rate, Regular Rhythm, No Murmur - MUSCULOSKELETAL/EXTREMETIES Musculoskeletal/Extremeties: MAEW - NEURO Level of Consciousness: Awake, Alert, Appropriate Motor/Sensory: No Motor Deficit - DERM Integumentary: Warm, Dry, No Rash Course - Re-evaluation Re-evalutation: 01/30/19 19:15 Patient without any drainable abscess. Will change patient's prescription and encourage outpatient follow-up with his dentist. No concern for sepsis at this time. - Vital Signs Vital signs: Temp Pulse Resp BP Pulse Ox 98.7 F 80 16 150/78 H 99 01/30/19 19:13 01/30/19 19:13 01/30/19 19:13 01/30/19 19:13 01/30/19 19:13 Discharge - Discharge Clinical Impression: Pain, dental, hx dental extraction Condition: Stable Disposition: HOME, SELF-CARE Instructions: Clindamycin ([facility]), Oral Narcotic Medication ([facility]), Toothache ([facility]) Additional Instructions: Return immediately for any new or worsening symptoms Followup with your primary care provider, call tomorrow to make a followup appointment Follow-up with your dental care provider for recheck, call Saturday for an appointment Stop taking the penicillin and instead take the clindamycin as prescribed Prescriptions: Clindamycin HCl [Cleocin 300 mg Capsule] 300 mg PO TID #21 capsule Forms: Smoking Cessation Education
== END 2019-01-30 19:21 | disposition home or self-care (01) ==
LOC: ER 18:06
DX: G89.18 Other acute postprocedural pain (principal); Z98.818 Other dental procedure status; F17.200 Nicotine dependence, unspecified, uncomplicated
CPT/HCPCS: 99282; J3490

== ENCOUNTER 2019-02-18 05:15 | Emergency (ER) | payer MEDICAID ==
[2019-02-18 06:07] LABS: ABSOLUTE BASOPHILS # (AUTO) 0.1 10^3/uL (0.0-0.2); ABSOLUTE EOSINOPHILS # (AUTO) 0.3 10^3/uL (0.0-0.6); ABSOLUTE LYMPHOCYTES (AUTO) 2.2 10^3/uL (0.5-4.7); ABSOLUTE MONOCYTES (AUTO) 0.8 10^3/uL (0.1-1.4); ABSOLUTE NEUT (AUTO) 3.4 10^3/uL (1.7-8.2); BASOPHILS % (AUTO) 1.1 % (0-2); HEMATOCRIT 44.1 % (37.9-51.0); HEMOGLOBIN 14.8 g/dL (13.5-17.0); LYMPHOCYTES % (AUTO) 32.6 % (13-45); MEAN CORPUSCULAR HEMOGLOBIN 29.6 pg (27.0-33.4); MEAN CORPUSCULAR HGB CONC 33.5 g/dL (32.0-36.0); MEAN CORPUSCULAR VOLUME 88 fl (80-97); MONOCYTES % (AUTO) 11.4 % (3-13); PLATELET COUNT 280 10^3/uL (150-450); SEGMENTED NEUTROPHILS % (AUTO) 50.9 % (42-78); TOTAL CELLS COUNTED % (AUTO) 100 %; WHITE BLOOD COUNT 6.7 10^3/uL (4.0-10.5)
[2019-02-18 06:08] LABS: APPEARANCE,URINE CLEAR; BILIRUBIN,URINE NEGATIVE (NEGATIVE); COLOR,URINE YELLOW; GLUCOSE, URINE NEGATIVE (NEGATIVE); KETONES,URINE NEGATIVE (NEGATIVE); LEUKOCYTE ESTERASE,URINE NEGATIVE (NEGATIVE); NITRITE,URINE NEGATIVE (NEGATIVE); PROTEIN,URINE NEGATIVE (NEGATIVE); URINE SPECIFIC GRAVITY 1.028
[2019-02-18 06:17] LABS: ALBUMIN 3.9 g/dL (3.5-5.0); ALKALINE PHOSPHATASE 60 U/L (38-126); ANION GAP 10 (5-19); ASPARTATE AMINO TRANSFERASE 18 U/L (17-59); BILIRUBIN,DIRECT 0.4 mg/dL (0.0-0.4); BILIRUBIN,TOTAL 0.4 mg/dL (0.2-1.3); BLOOD UREA NITROGEN 12 mg/dL (7-20); CARBON DIOXIDE 28 mmol/L (22-30); CHLORIDE 107 mmol/L (98-107); GLUCOSE 114 mg/dL (75-110); TOTAL PROTEIN 6.8 g/dL (6.3-8.2)
[2019-02-18] MEDS ORDERED: KETOROLAC TROMETHAMINE INJ/PF 30 MG/1 ML SDV IV ONE (09:39)
--- NOTE | 2019-02-18 09:42 | ER Document Report ---
ED General - General Chief Complaint: Flank Pain Stated Complaint: ABDOMINAL PAIN/BACK PAIN Time Seen by Provider: 02/18/19 08:35 Primary Care Provider: [facility] [Provider Group] - Follow up in 3-5 days CRYSTAL WRIGHT MD [ACTIVE STAFF] - Follow up in 3-5 days Notes: 29-year-old male with history of IBS presents with nausea/vomiting, abdominal pain, and bilateral flank pain. Patient states nausea/vomiting and abdominal pain have been ongoing for 2 days. Patient states he vomited 2 times yesterday. Patient states bilateral flank pain started last night. Patient denies any diarrhea, urinary symptoms, fever. Patient does admit constipation however still passing gas. Patient does also admit to feeling "hot and cold." Patient denies any abdominal surgeries. Patient's mother states she has had kidney stones and patient's grandfather is also had for kidney stones. Patient denies any personal history of kidney stones or kidney infections. TRAVEL OUTSIDE OF THE [place] IN LAST 30 DAYS: No - Related Data Allergies/Adverse Reactions: No Known Allergies Allergy (Verified 02/18/19 08:56) Past Medical History - Social History Smoking Status: Current Every Day Smoker Family History: Arthritis, CVA. denies: CAD, COPD, DM, Hyperlipidemia, Hypertension, Malignancy, Thyroid Disfunction Patient has suicidal ideation: No Patient has homicidal ideation: No Renal/ Medical History: Reports: Hx Hydrocele. Denies: Hx Peritoneal Dialysis GI Medical History: Reports: Hx Irritable Bowel Musculoskeletal Medical History: Reports Hx Arthritis, Reports Hx Musculoskeletal Trauma Traumatic Medical History: Reports: Hx Fractures Past Surgical History: Reports: Hx Orthopedic Surgery - dislocated ankle repaired 2012, Other - Ophthalmic surgery - Immunizations Immunizations up to date: Yes Hx Diphtheria, Pertussis, Tetanus Vaccination: Yes - 2014 Review of Systems - Review of Systems Notes: Constitutional: Negative for fever. HENT: Negative for sore throat. Eyes: Negative for visual changes. Cardiovascular: Negative for chest pain. Respiratory: Negative for shortness of breath. Gastrointestinal: Positive for abdominal pain, vomiting and bilateral flank pain. Negative for diarrhea. Genitourinary: Negative for dysuria. Musculoskeletal: Negative for back pain. Skin: Negative for rash. Neurological: Negative for headaches, weakness or numbness. 10 point ROS negative except as marked above and in HPI. Physical Exam - Vital signs Vitals: Temp Pulse Resp BP Pulse Ox 97.7 F 92 20 131/77 H 100 02/18/19 05:19 02/18/19 05:19 02/18/19 05:19 02/18/19 05:19 02/18/19 05:19 - Notes Notes: GENERAL: Well-appearing, well-nourished and in no acute distress. HEAD: Atraumatic, normocephalic. EYES: Extraocular movements intact, sclera anicteric, conjunctiva are normal. NECK: Normal range of motion, supple without lymphadenopathy or JVD. LUNGS: Breath sounds clear to auscultation bilaterally and equal. No wheezes rales or rhonchi. HEART: Regular rate and rhythm without murmurs, rubs or gallops. ABDOMEN: Soft, diffusely tender. No guarding, no rebound. No masses appreciated. No CVA tenderness. BACK: No spinal tenderness. Mild muscle spasm noted to lower thoracic paraspinal muscles. EXTREMITIES: Normal range of motion, no pitting or edema. No clubbing or cyanosis. NEUROLOGICAL: Cranial nerves II through XII grossly intact. Normal speech, normal gait. PSYCH: Normal mood, normal affect. SKIN: Warm, Dry, normal turgor, no rashes or lesions noted. Course - Re-evaluation Re-evalutation: 02/18/19 29-year-old male with history of IBS presents for nausea/vomiting, bilateral flank plain, and abdominal pain. Patient is afebrile. Patient is nontoxic, well-appearing. Abdomen is soft diffusely tender. No CVA tenderness. PE is otherwise unremarkable CBC is within normal limits with no leukocytosis. CMP is within normal limits. UA shows 2 RBCs but is otherwise unremarkable. CT abdomen/pelvis with IV contrast ordered. Toradol also ordered for pain control. Patient offered antiemetic however declining at this time. 02/18/19 11:[address] results with patient and patient's mother. Patient pointed to area of pain which upon palpation is consistent with possible muscle spasm. Flexeril p.o. ordered. Patient to be given Flexeril prescription with sedation warning and Zofran for nausea and vomiting. Strict return precautions given. Patient given for close follow-up with PCP. Patient and patient's mother voiced understanding and agree with plan of care. - Vital Signs Vital signs: Temp Pulse Resp BP Pulse Ox 97.7 F 92 20 131/77 H 100 02/18/19 05:19 02/18/19 05:19 02/18/19 05:19 02/18/19 05:19 02/18/19 05:19 - Laboratory Result Diagrams: 02/18/19 05:50 02/18/19 05:50 Laboratory results interpreted by me: 02/18/19 02/18/19 05:30 05:50 Sodium 145.2 H Glucose 114 H Urine Urobilinogen 2.0 H Discharge - Discharge Clinical Impression: Muscle spasm, Bilateral flank pain Nausea & vomiting Qualifiers: Vomiting type: unspecified Vomiting Intractability: unspecified Qualified C ode(s): R11.2 - Nausea with vomiting, unspecified Abdominal pain Qualifiers: Abdominal location: generalized Qualified Code(s): R10.84 - Generalized abdominal pain Condition: Stable Disposition: HOME, SELF-CARE Instructions: Abdominal Pain ([facility]), Antinausea Medication ([facility]), Toradol Injection ([facility]) Additional Instructions: Your CT and lab work today was reassuring. Please take medications as prescribed. Do not drink or drive while taking Flexeril as it may make you drowsy. Please follow-up with 1 of the clinics listed in 3 to 5 days. Return to ER for any worsening symptoms, including vomiting not controlled by medication, fever, worsening abdominal pain, worsening flank pain, diarrhea, inability to pass gas, chest pain, shortness of breath, or any other symptoms that are concerning to you. Prescriptions: Ondansetron [Zofran Odt 4 mg Tablet] 4 mg PO Q4HP PRN #30 tab.rapdis PRN Reason: Cyclobenzaprine HCl [Flexeril 10 mg Tablet] 10 mg PO TIDP PRN #15 tab PRN Reason: Referrals: CRYSTAL WRIGHT MD [ACTIVE STAFF] - Follow up in 3-5 days [facility] [Provider Group] - Follow up in 3-5 days
--- NOTE | 2019-02-18 10:29 | RADIOLOGY REPORT (SQ) ---
EXAM DESCRIPTION: CT ABD/PELVIS WITH IV ONLY COMPLETED DATE/TIME: 02/18/2019 9:59 am REASON FOR STUDY: bilateral flank pain, abd pain, n/v COMPARISON: None. TECHNIQUE: CT scan of the abdomen and pelvis performed using helical scanning technique with dynamic intravenous contrast injection. No oral contrast. Images reviewed with lung, soft tissue, and bone windows. Reconstructed coronal and sagittal MPR images reviewed. Delayed images for evaluation of the urinary system also acquired. All images stored on PACS. All CT scanners at this facility use dose modulation, iterative reconstruction, and/or weight based d osing when appropriate to reduce radiation dose to as low as reasonably achievable (ALARA). [facility]: Dose Right [facility]: CareDose [facility]: Dose Right [facility]: Teradose 4D [facility]: Identification Solutions CONTRAST TYPE AND DOSE: contrast/concentration: Isovue 350.00 mg/ml; Total Contrast Delivered: 95.0 ml; Total Saline Delivered: 71.0 ml RENAL FUNCTION: BUN 12 creatinine 1.04. RADIATION DOSE: CT Rad equipment meets quality standard of care and radiation dose reduction techniq ues were employed. CTDIvol: 6.5 - 9.0 mGy. DLP: 816 mGy-cm.. LIMITATIONS: None. FINDINGS: LOWER CHEST: No significant findings. No nodules or infiltrates. LIVER: Normal size. No masses. No dilated ducts. SPLEEN: Normal size. No focal lesions. PANCREAS: No masses. No significant calcifications. No adjacent inflammation or peripancreatic fluid collections. Pancreatic duct not dilated. GALLBLADDER: No identified stones by CT criteria. No inflammatory changes to suggest cholecystitis. ADRENAL GLANDS: No significant masses or asymmetry. RIGHT KIDNEY AND URETER: No solid masses. No significant calcifications. No hydronephrosis or hyd roureter. LEFT KIDNEY AND URETER: No solid masses. No significant calcifications. No hydronephrosis or hydr oureter. AORTA AND VESSELS: No aneurysm. No dissection. Renal arteries, SMA, celiac without stenosis. RETROPERITONEUM: No retroperitoneal adenopathy, hemorrhage or masses. BOWEL AND PERITONEAL CAVITY: No masses or inflammatory changes. No free fluid or peritoneal masses. APPENDIX: Normal. PELVIS: No mass. No free fluid. Normal bladder. ABDOMINAL WALL: No masses. No hernias. BONES: No significant or acute findings. OTHER: No other significant finding. IMPRESSION: NO SIGNIFICANT OR ACUTE FINDING IN THE ABDOMEN OR PELVIS ON CT SCAN WITH IV CONTRAST. TECHNICAL DOCUMENTATION: JOB ID: [id number] Quality ID # [id number]: Final reports with documentation of one or more dose reduction techniques (e.g., Au tomated exposure control, adjustment of the mA and/or kV according to patient size, use of iterative reconstruction technique) 2010 [employer]- All Rights Reserved Reading location - IP/workstation name: [email or web address]
[2019-02-18] MEDS ORDERED: CYCLOBENZAPRINE HCL 10 MG TABLET PO ONE (11:25)
[2019-02-18 12:11] VITALS: BP 120/86
== END 2019-02-18 12:10 | disposition home or self-care (01) ==
LOC: ER 05:15
DX: M62.838 Other muscle spasm (principal); R10.84 Generalized abdominal pain; M54.9 Dorsalgia, unspecified; R11.2 Nausea with vomiting, unspecified; F17.200 Nicotine dependence, unspecified, uncomplicated
CPT/HCPCS: 99284; 96374; 36415; 83690; 85025; 80053; 81001; 74177; J3490; J1885

== ENCOUNTER 2019-03-16 18:49 | Emergency (ER) | payer MEDICAID ==
[2019-03-16] MEDS ORDERED: IBUPROFEN 800 MG TABLET PO ONE (20:36)
[2019-03-16] MEDS ORDERED: OXYCODONE-ACETAMINOPHEN 5-325 MG TABLET PO ONE (20:37)
--- NOTE | 2019-03-16 20:41 | ER Document Report ---
HPI - HPI Time Seen by Provider: 03/16/19 20:29 Pain Level: 5 Notes: 29-year-old male patient presenting to the emergency department requesting a medication refill. Patient reports he had dental extractions done today and he states that he was taking Percocet. Patient reports that his grandmother was going to give him a dose of his Percocet when she accidentally dumped it drawn the sink drain. Patient is requesting a refill on his Percocet. - REPRODUCTIVE Reproductive: DENIES: : Past Medical History - General Information source: Patient - Social History Smoking Status: Current Every Day Smoker Frequency of alcohol use: None Drug Abuse: None Family History: Arthritis, CVA. denies: CAD, COPD, DM, Hyperlipidemia, Hypertension, Malignancy, Thyroid Disfunction Patient has suicidal ideation: No Patient has homicidal ideation: No Renal/ Medical History: Reports: Hx Hydrocele. Denies: Hx Peritoneal Dialysis GI Medical History: Reports: Hx Irritable Bowel Musculoskeletal Medical History: Reports Hx Arthritis, Reports Hx Musculoskeletal Trauma Traumatic Medical History: Reports: Hx Fractures Past Surgical History: Reports: Hx Oral Surgery, Hx Orthopedic Surgery - dislocated ankle repaired 2012, Other - Ophthalmic surgery - Immunizations Immunizations up to date: Yes Hx Diphtheria, Pertussis, Tetanus Vaccination: Yes - 2014 Vertical Provider Document - CONSTITUTIONAL Notes: PHYSICAL EXAMINATION: GENERAL: Well-appearing, well-nourished and in no acute distress. HEAD: Atraumatic, normocephalic. EYES: Pupils equal round extraocular movements intact, conjunctiva are normal. ENT: Nares patent, multiple dental extraction sites noted. NECK: Normal range of motion LUNGS: No respiratory distress Musculoskeletal: Normal range of motion NEUROLOGICAL: Normal speech, normal gait. PSYCH: Normal mood, normal affect. SKIN: Warm, Dry, normal turgor, no rashes or lesions noted. - INFECTION CONTROL TRAVEL OUTSIDE OF THE [place] IN LAST 30 DAYS: No Course - Re-evaluation Re-evalutation: Patient appears well, nontoxic, he does have evidence of having recent dental extraction to multiple teeth. Unfortunately the patient was here in October with the exact same request, at that time I also saw the patient and he had requested a refill on his oxycodone stating that his grandmother had also dumped it down the sink during that time. At that time I did refill the oxycodone for 2 days as he had recently had ophthalmology surgery and I touch base with the automation control integrator prior to refilling the medication. This time unfortunately I encouraged patient to follow-up with his dentist and I told him that we are unable to refill narcotics and that I would highly advise that he not allow his grandmother to handle his medication if she is unable to keep a good hold on it. Patient verbalized understanding and agreement with plan. - Vital Signs Vital signs: Temp Pulse Resp BP Pulse Ox 98.0 F 86 16 119/76 97 03/16/19 18:57 03/16/19 18:57 03/16/19 18:57 03/16/19 18:57 03/16/19 18:57 Discharge - Discharge Clinical Impression: Encounter for medication refill, Pain, dental Condition: Stable Disposition: HOME, SELF-CARE Additional Instructions: Please follow-up with your dentist for refill of your Percocet that was dumped down the drain by your grandmother. We are unable to refill this in the emergency department. Referrals: ASTRID RUST, BOAT FINISHER-C [Primary Care Provider] - Follow up as needed
[2019-03-16 20:55] VITALS: BP 126/83
== END 2019-03-16 21:00 | disposition home or self-care (01) ==
LOC: ER 18:49
DX: Z76.0 Encounter for issue of repeat prescription (principal); G89.18 Other acute postprocedural pain; K08.9 Disorder of teeth and supporting structures, unspecified
CPT/HCPCS: 99281; J3490

== ENCOUNTER 2019-04-02 16:52 | Emergency (ER) | payer MEDICAID ==
[2019-04-02] MEDS ORDERED: KETOROLAC TROMETHAMINE INJ/PF 30 MG/1 ML SDV IV ONE (18:06)
[2019-04-02] MEDS ORDERED: NORMAL SALINE 1000 ML 1,000 ML IV ONE (18:06)
[2019-04-02] MEDS ORDERED: ONDANSETRON HCL INJ/PF 4 MG/2 ML SDV IV ONE (18:06)
[2019-04-02] MEDS ORDERED: ACETAMINOPHEN 325 MG TABLET PO ONE (18:06)
--- NOTE | 2019-04-02 18:11 | ER Document Report ---
ED Medical Screen (RME) - General Chief Complaint: Flu Symptoms Stated Complaint: SORE THROAT,COUGH Time Seen by Provider: 04/02/19 18:01 Primary Care Provider: ASTRID RUST FNP-C [Primary Care Provider] - Follow up as needed Notes: Patient is a 29-year-old male who presents emergency department with a chief complaint of fever. Patient states that his daughter was diagnosed with flu B recently. He states yesterday beginning to have body aches, fever. He is vomited once this morning. Patient did take some antinausea medication this morning has not vomited since. Denies diarrhea. Reports sore throat, n onproductive cough. Last dose of Motrin was this morning. Patient not had anything since. TRAVEL OUTSIDE OF THE [place] IN LAST 30 DAYS: No - Related Data Allergies/Adverse Reactions: No Known Allergies Allergy (Verified 03/16/19 20:29) Past Medical History - Social History Chew tobacco use (# tins/day): No Frequency of alcohol use: Occasional Drug Abuse: None Renal/ Medical History: Reports: Hx Hydrocele. Denies: Hx Peritoneal Dialysis GI Medical History: Reports: Hx Irritable Bowel Musculoskeltal Medical History: Reports Hx Arthritis, Reports Hx Musculoskeletal Trauma Traumatic Medical History: Reports: Hx Fractures Past Surgical History: Reports: Hx Oral Surgery, Hx Orthopedic Surgery - dislocated ankle repaired 2012, Other - Ophthalmic surgery - Immunizations Immunizations up to date: Yes Hx Diphtheria, Pertussis, Tetanus Vaccination: Yes - 2014 Physical Exam - Vital signs Vitals: Temp Pulse Resp BP Pulse Ox 103.1 F H 159 H 20 127/68 H 95 04/02/19 17:08 04/02/19 17:08 04/02/19 17:08 04/02/19 17:08 04/02/19 17:08 - Respiratory Respiratory status: No respiratory distress Chest status: Nontender Breath sounds: Normal Chest palpation: Normal Course - Re-evaluation Re-evalutation: 04/02/19 18:10 Patient heart rate was noticed to be 159. Will initiate IV fluids, basic labs give Toradol and Tylenol. I have greeted and performed a rapid initial assessment of this patient. A comprehensive ED assessment and evaluation of the patient, analysis of test results and completion of the medical decision making process will be conducted by additional ED providers. - Vital Signs Vital signs: Temp Pulse Resp BP Pulse Ox 103.1 F H 159 H 20 127/68 H 95 04/02/19 17:08 04/02/19 17:08 04/02/19 17:08 04/02/19 17:08 04/02/19 17:08 Doctor's Discharge - Discharge Referrals: ASTRID RUST, LICENSE EXAMINER-C [Primary Care Provider] - Follow up as needed
[2019-04-02 19:44] LABS: ABSOLUTE LYMPHOCYTES (AUTO) 1.6 10^3/uL (0.5-4.7); ABSOLUTE MONOCYTES (AUTO) 1.5 10^3/uL (0.1-1.4); ABSOLUTE NEUT (AUTO) 12.3 10^3/uL (1.7-8.2); BASOPHILS % (AUTO) 0.3 % (0-2); HEMATOCRIT 44.9 % (37.9-51.0); HEMOGLOBIN 15.2 g/dL (13.5-17.0); LYMPHOCYTES % (AUTO) 10.1 % (13-45); MEAN CORPUSCULAR HEMOGLOBIN 29.9 pg (27.0-33.4); MEAN CORPUSCULAR HGB CONC 33.8 g/dL (32.0-36.0); MEAN CORPUSCULAR VOLUME 89 fl (80-97); MONOCYTES % (AUTO) 9.8 % (3-13); PLATELET COUNT 229 10^3/uL (150-450); RED BLOOD COUNT 5.07 10^6/uL (4.35-5.55); SEGMENTED NEUTROPHILS % (AUTO) 79.8 % (42-78); TOTAL CELLS COUNTED % (AUTO) 100 %; WHITE BLOOD COUNT 15.5 10^3/uL (4.0-10.5)
[2019-04-02 20:01] LABS: A TYPE INFLUENZA AG NEGATIVE (NEGATIVE); B INFLUENZA AG NEGATIVE (NEGATIVE)
[2019-04-02 20:17] LABS: ALBUMIN 4.5 g/dL (3.5-5.0); ALKALINE PHOSPHATASE 72 U/L (38-126); ANION GAP 13 (5-19); ASPARTATE AMINO TRANSFERASE 21 U/L (17-59); BILIRUBIN,DIRECT 0.4 mg/dL (0.0-0.4); BILIRUBIN,TOTAL 0.7 mg/dL (0.2-1.3); BLOOD UREA NITROGEN 17 mg/dL (7-20); CARBON DIOXIDE 25 mmol/L (22-30); CHLORIDE 97 mmol/L (98-107); GLUCOSE 114 mg/dL (75-110); POTASSIUM 4.3 mmol/L (3.6-5.0); TOTAL PROTEIN 7.7 g/dL (6.3-8.2)
[2019-04-02] MEDS ORDERED: NORMAL SALINE IV ONE (20:41)
--- NOTE | 2019-04-02 20:43 | RADIOLOGY REPORT (SQ) ---
EXAM DESCRIPTION: XR CHEST 2 VIEWS COMPLETED DATE/TME: 04/02/2019 20:16 CLINICAL HISTORY: 29 years, Male, cough/fever COMPARISON: None. NUMBER OF VIEWS: Prior study from 02/10/2019 TECHNIQUE: Frontal and lateral radiograph are obtained LIMITATIONS: None. FINDINGS: Cardiac and mediastinal contours are stable. Lungs are clear. No pleural effusion or pneumothorax. IMPRESSION: No acute disease. copyright 2010 [employer]- All Rights Reserved
--- NOTE | 2019-04-02 20:45 | ER Document Report ---
ED Flu Like - General Chief Complaint: Flu Symptoms Stated Complaint: SORE THROAT,COUGH Time Seen by Provider: 04/02/19 18:01 Primary Care Provider: ASTRID RUST FNP-C [Primary Care Provider] - Follow up as needed Notes: Patient is a 29-year-old white male with no significant past medical history presents to the emergency department today with a chief complaint of fever and sore throat that began this morning around 3 AM. The patient states he awoke at 3 AM with a sore throat. States he vomited x1. Went back to sleep and woke at 6 AM "drenched in sweat." He reports as the day gone on he has had ongoing fevers, sweating, sore throat and a cough that originates from a tickle in the throat, making the throat pain worse with cough. Denies any productivity to the cough. Denies any further vomiting. Denies any diarrhea. Reports that his son was recently sick with influenza B. He denies any other known sick contacts or travel. No chest pain, shortness of breath or abdominal pain. He does add that he had some difficulty with urination upon providing a sample here but had no other urinary complaints. TRAVEL OUTSIDE OF THE [place] IN LAST 30 DAYS: No - Related Data Allergies/Adverse Reactions: No Known Allergies Allergy (Verified 03/16/19 20:29) Past Medical History - Social History Smoking Status: Current Every Day Smoker Chew tobacco use (# tins/day): No Frequency of alcohol use: Occasional Drug Abuse: None Family History: Arthritis, CVA. denies: CAD, COPD, DM, Hyperlipidemia, Hypertension, Malignancy, Thyroid Disfunction Patient has suicidal ideation: No Patient has homicidal ideation: No Renal/ Medical History: Reports: Hx Hydrocele. Denies: Hx Peritoneal Dialysis GI Medical History: Reports: Hx Irritable Bowel Musculoskeletal Medical History: Reports Hx Arthritis, Reports Hx Musculoskeletal Trauma Traumatic Medical History: Reports: Hx Fractures Past Surgical History: Reports: Hx Oral Surgery, Hx Orthopedic Surgery - dislocated ankle repaired 2012, Other - Ophthalmic surgery - Immunizations Immunizations up to date: Yes Hx Diphtheria, Pertussis, Tetanus Vaccination: Yes - 2014 Review of Systems - Review of Systems Constitutional: Chills, Diaphoresis, Fever EENT: Throat pain Respiratory: Cough Gastrointestinal: Vomiting -: Yes All other systems reviewed and negative Physical Exam - Vital signs Vitals: Temp Pulse Resp BP Pulse Ox 103.1 F H 159 H 20 127/68 H 95 04/02/19 17:08 04/02/19 17:08 04/02/19 17:08 04/02/19 17:08 04/02/19 17:08 - General General appearance: Alert, Other - Diaphoretic appears ill, nontoxic In distress: None - HEENT Head: Normocephalic, Atraumatic Eyes: Normal Conjunctiva: Normal Extraocular movements intact: Yes Eyelashes: Normal Pupils: PERRL Ears: Normal External canal: Normal Tympanic membrane: Normal Sinus: Normal Nasal: Normal Mouth/Lips: Normal Mucous membranes: Normal Pharynx: Other - Posterior pharyngeal erythema, no exudate. Uvula midline without edema or erythema. Patent airway. Handling secretions well. No sublingual or submental swelling. No trismus. Neck: Lymphadenopathy - Nontender. No: Meningismus - Respiratory Respiratory status: No respiratory distress Chest status: Nontender Breath sounds: Normal Chest palpation: Normal - Cardiovascular Rhythm: Regular Heart sounds: Normal auscultation Murmur: No - Abdominal Inspection: Normal Distension: No distension Bowel sounds: Normal Tenderness: Nontender Organomegaly: No organomegaly - Back Back: Normal, Nontender - Neurological Neuro grossly intact: Yes Cognition: Normal Orientation: AAOx4 [place] Coma Scale Eye Opening: Spontaneous [place] Coma Scale Verbal: Oriented [place] Coma Scale Motor: Obeys Commands [place] Coma Scale Total: 15 Speech: Normal - Psychological Associated symptoms: Normal affect, Normal mood - Skin Skin Temperature: Warm Skin Moisture: Dry Skin Color: Normal Course - Re-evaluation Re-evalutation: 04/02/19 22:58 Patient met sepsis/Sirs criteria upon arrival. Bolus was initiated, sepsis alert called, Rocephin and Zithromax were hung. After these measures were taken and the patient's vitals normalized his temperature returned to a normal baseline and reevaluation of him at this time shows him to be resting comfortably in the room, he looks and reports that he feels significantly better. His chest x-ray was negative for any acute process. His strep and flu swabs were negative. He is pending throat culture and blood cultures. I discussed with him that he should stay has admission observation pending further testing for monitoring and care. He verbalized he does not wish to stay at this time. I discussed with him and his family at length risks of this decision including but not limited to sudden or permanent neurological disability. They verbalized understood and agree but still wished to proceed with plan for discharge because he was feeling much better. They are free to return here at any time to continue the care, they understand this. They are of sound mind admit the capacity to make informed decision. I discussed with him the importance of outpatient follow-up as soon as possible for reevaluation and advised to return here or any ER immediately with any new, persistent or worsening symptoms. They verbalized understood and agreed. - Vital Signs Vital signs: Temp Pulse Resp BP Pulse Ox 98.5 F 98 18 105/74 96 04/02/19 22:22 04/02/19 22:22 04/02/19 22:22 04/02/19 22:22 04/02/19 22:22 - Laboratory Result Diagrams: 04/02/19 19:19 04/02/19 19:19 Laboratory results interpreted by me: 04/02/19 04/02/19 04/02/19 19:19 19:19 20:11 WBC 15.5 H Lymph % (Auto) 10.1 L Absolute Neuts (auto) 12.3 H Absolute Monos (auto) 1.5 H Seg Neutrophils % 79.8 H Sodium 134.8 L Chloride 97 L Creatinine 1.30 H Glucose 114 H Urine Protein 100 H Urine Ketones TRACE H Urine Urobilinogen 2.0 H Discharge - Discharge Clinical Impression: Pharyngitis Qualifiers: Pharyngitis/tonsillitis etiology: unspecified etiology Qualified Code(s): J02.9 - Acute pharyngitis, unspecified Condition: Stable Disposition: HOME, SELF-CARE Instructions: Sore Throat ([facility]) Additional Instructions: Please follow-up outpatient with your regular doctor as soon as possible for reevaluation. Return here or any ER immediately with any new, persistent or worsening symptoms. Referrals: ASTRID RUST FNP-C [Primary Care Provider] - Follow up as needed
[2019-04-02] MEDS ORDERED: CEFTRIAXONE 1 GM/D5W RTU 1 GM/50 ML RTUPB IV ONE (20:55)
[2019-04-02] MEDS ORDERED: AZITHROMYCIN INJ 500 MG VIAL IV ONE (20:56)
[2019-04-02 22:44] LABS: APPEARANCE,URINE SLIGHTLY-CLOUDY; BILIRUBIN,URINE NEGATIVE (NEGATIVE); COLOR,URINE AMBER; GLUCOSE, URINE NEGATIVE (NEGATIVE); KETONES,URINE TRACE mg/dL (NEGATIVE); LEUKOCYTE ESTERASE,URINE NEGATIVE (NEGATIVE); NITRITE,URINE NEGATIVE (NEGATIVE); PROTEIN,URINE 100 mg/dL (NEGATIVE); URINE SPECIFIC GRAVITY 1.028
[2019-04-03 00:31] VITALS: BP 109/72
== END 2019-04-03 00:31 | disposition home or self-care (01) ==
LOC: ER 16:52
DX: J02.9 Acute pharyngitis, unspecified (principal); R50.9 Fever, unspecified; R59.0 Localized enlarged lymph nodes; R11.10 Vomiting, unspecified; R05 Cough; F17.200 Nicotine dependence, unspecified, uncomplicated; Z20.828 Contact with and (suspected) exposure to other viral communicable diseases
CPT/HCPCS: 99283; 96360; 36415; 87040; 87070; 87880; 83605; 85025; 80053; 81001; 87804; 71046; J3490; J1885; J2405; J7030; J0456; J0696

== ENCOUNTER 2019-06-09 19:47 | Emergency (ER) | payer MEDICAID ==
--- NOTE | 2019-06-09 20:03 | ER Document Report ---
ED General - General Chief Complaint: Cough Stated Complaint: COUGH Time Seen by Provider: 06/09/19 19:52 Primary Care Provider: ASTRID RUST FNP-C [Primary Care Provider] - Follow up as needed Notes: Patient is a 29-year-old male with history of smoking who presents with 1 month of "I feel sick" consisting of fatigue and not feeling well. No fevers or chills. Has had 3 days of cough dry in the setting of heavy smoking as well and feels some chest pain when he breathes it goes down his left arm for 2 days. No cardiac history no history of PE no leg swelling no COVID positive contacts no fever no wet cough. TRAVEL OUTSIDE OF THE [place] IN LAST 30 DAYS: No - Related Data Allergies/Adverse Reactions: No Known Allergies Allergy (Verified 03/16/19 20:29) Past Medical History - Social History Smoking Status: Current Every Day Smoker Smoking Education Provided: Yes - The patient ED visit today was directly related to their abuse of tobacco. Family History: Arthritis, CVA. denies: CAD, COPD, DM, Hyperlipidemia, Hyp ertension, Malignancy, Thyroid Disfunction Renal/ Medical History: Reports: Hx Hydrocele. Denies: Hx Peritoneal Dialysis GI Medical History: Reports: Hx Irritable Bowel Musculoskeletal Medical History: Reports Hx Arthritis, Reports Hx Musculoskeletal Trauma Traumatic Medical History: Reports: Hx Fractures Past Surgical History: Reports: Hx Oral Surgery, Hx Orthopedic Surgery - dislocated ankle repaired 2012, Other - Ophthalmic surgery - Immunizations Immunizations up to date: Yes Hx Diphtheria, Pertussis, Tetanus Vaccination: Yes - 2014 Review of Systems - Review of Systems Notes: REVIEW OF SYSTEMS GEN: D see HPI ENT: Denies sore throat, nasal discharge, ear pain EYES: Denies blurry vision, eye pain, discharge CV: Denies chest pain, palpitations, edema RESP see HPI heezing GI: See HPI ea MSK: Denies joint pain/swelling, edema, SKIN: Denies rash, skin lesions LYMPH: Denies swollen glands/lymph nodes NEURO: Denies headache, focal weakness or numbness, dizziness PSYCH: Denies depression, suicidal or homicidal ideation PHYSICAL EXAMINATION General: No acute distress, well-nourished Head: Atraumatic, normocephalic ENT: Mouth normal, oropharynx moist, no exudates or tonsillar enlargement Eyes: Conjunctiva normal, pupils equal, lids normal Neck: No JVD, supple, no guarding CVS: Normal rate, regular rhythm, no murmurs Resp: No resp distress, equal and normal breath sounds bilaterally GI: Nondistended, soft, no tenderness to palpation, no rebound or guarding Ext: No deformities, no edema, normal range of motion in upper and lower ext Back: No CVA or midline TTP Skin: No rash, warm Lymphatic: No lymphadeopathy noted Neuro: Awake, alert. Face symmetric. GCS 15. Physical Exam - Vital signs Vitals: Temp Pulse Resp BP Pulse Ox 98.4 F 92 18 129/88 H 99 06/09/19 19:55 06/09/19 19:55 06/09/19 19:55 06/09/19 19:55 06/09/19 19:55 Course - Re-evaluation Re-evalutation: 06/09/19 20:01 Healthy young male presents with 1 month of cold symptoms with worsening cough for 2 days. Likely bronchitis or URI also probably smoking related. No history of COPD. Has chest pain but is quite young with no risk factors other than smoking so we will get a screening EKG and rule out if negative. Chest x-ray is not indicated at this time. We had a discussion about coronavirus being likely inability to test healthy looking outpatients and home quarantine instructions. I have discussed with the patient there likely diagnosis, aftercare plan, follow-up plans and my usual and customary return precautions. They verbalized understanding of this. - Vital Signs Vital signs: Temp Pulse Resp BP Pulse Ox 98.4 F 92 18 129/88 H 99 06/09/19 19:55 06/09/19 19:55 06/09/19 19:55 06/09/19 19:55 06/09/19 19:55 - Diagnostic Test Radiology reviewed: Image reviewed, Reports reviewed - EKG Interpretation by Me EKG shows normal: Sinus rhythm Rate: Normal Rhythm: NSR Discharge - Discharge Clinical Impression: Viral bronchitis Condition: Good Disposition: HOME, SELF-CARE Instructions: Upper Respiratory Illness ([facility]) Additional Instructions: You have been evaluated for complaints or symptoms which could reflect infection with coronavirus/Covid-19 disease. In the emergency department we are incapable of testing every patient and given the prevalence of the disease in this community you should assume you are infected. Please stay at home with minimal interaction to others, wash your hands, practice social distancing while at home, and remained at home without any travel outside of the home for: 1. At least 3 days (72 hours) have passed since recovery defined as resolution of fever without the use of fever-reducing medications and improvement in respiratory symptoms (e.g., cough, shortness of breath) AND 2. At least 7 days have passed since symptoms first appeared. Referrals: ASTRID RUST, FLAME HARDENING MACHINE OPERATOR-C [Primary Care Provider] - Follow up as needed
[2019-06-09 20:48] VITALS: BP 129/88
--- NOTE | 2019-06-10 07:23 | EKG REPORT ---
SEVERITY:- ABNORMAL ECG - SINUS RHYTHM INCOMPLETE RIGHT BUNDLE BRANCH BLOCK : Confirmed by: Marcia Hansen 10-Jun-2019 07:22:22
== END 2019-06-09 20:48 | disposition home or self-care (01) ==
LOC: ER 19:47
DX: J40 Bronchitis, not specified as acute or chronic (principal); B97.89 Other viral agents as the cause of diseases classified elsewhere; R05 Cough; R53.83 Other fatigue; R07.1 Chest pain on breathing; F17.200 Nicotine dependence, unspecified, uncomplicated; Z20.828 Contact with and (suspected) exposure to other viral communicable diseases
CPT/HCPCS: 93005; 93010; 99283

== ENCOUNTER 2019-07-29 14:05 | Emergency (ER) | payer MEDICAID ==
--- NOTE | 2019-07-29 15:08 | ER Document Report ---
ED General - General Chief Complaint: Fever Stated Complaint: FEVER Time Seen by Provider: 07/29/19 14:36 Primary Care Provider: ASTRID RUST FNP-C [COMMUNITY BASED STAFF] - Follow up as needed Notes: CHIEF COMPLAINT: Multiple complaints HPI: 29-year-old male presenting to the emergency department with multiple complaints. Patient states over the last 3 to 4 months he has had a slight cough, occasional shortness of breath, generalized fatigue and feeling feverish. No definite fevers. States he came to the emergency department 1 to 2 months ago, states that he was told that he may have viral bronchitis and was discharged home. Went to an urgent care the next day and was placed on a Z-Eddie which he states did not change any of his symptoms. Has not yet followed up with a PCP in the last 3 to 4 months. Patient states when he works outside he does become slightly more fatigued. Patient has continued to smoke throughout his illness ROS: See HPI - all other systems were reviewed and are otherwise negative Constitutional: Subjective fever Eyes: no drainage, no blurred vision ENT: no runny nose, no sore throat Cardiovascular: no chest pain Resp: no SOB, + cough GI: no vomiting, no diarrhea, no abdominal pain : no dysuria Integumentary: no rash Allergy: no hives Musculoskeletal: no extremity pain or swelling Neurological: no numbness/tingling, no weakness MEDICATIONS: I agree with the patient medications as charted by the RN. ALLERGIES: I agree with the allergies as charted by the RN. PAST MEDICAL HISTORY/PAST SURGICAL HISTORY: Reviewed and agree as charted by RN. SOCIAL HISTORY: Reviewed and agree as charted by RN. FAMILY HISTORY: No significant familial comorbid conditions directly related to patient complaint EXAM: Reviewed vital signs as charted by RN. CONSTITUTIONAL: Alert and oriented and responds appropriately to questions. Well-appearing; well-nourished HEAD: Normocephalic; atraumatic EYES: PERRL; Conjunctivae clear, sclerae non-icteric ENT: normal nose; no rhinorrhea; moist mucous membranes; pharynx without lesions noted, no uvula edema or deviation, no tonsillar hypertrophy, phonation normal NECK: Supple without meningismus; non-tender; no cervical lymphadenopathy, no masses CARD: RRR; no murmurs, no clicks, no rubs, no gallops; symmetric distal pulses RESP: Normal chest excursion without splinting or tachypnea; breath sounds clear and equal bilaterally; no wheezes, no rhonchi, no rales, pulse oximetry 98% on room air not hypoxic ABD/GI: Normal bowel sounds; non-distended; soft, non-tender, no rebound, no guarding; no palpable organomegaly or masses. BACK: The back appears normal and is non-tender to palpation, there is no CVA tenderness EXT: Normal ROM in all joints; non-tender to palpation; no cyanosis, no effusions, no edema SKIN: Normal color for age and race; warm; dry; good turgor; no acute lesions noted NEURO: Moves all extremities equally; Motor and sensory function intact PSYCH: The patient's mood and manner are appropriate. Grooming and personal hygiene are appropriate. MDM: 29-year-old male who smokes presenting for generalized fatigue over the last 3 to 4 months with occasional cough occasional shortness of breath occasional subjective fevers, states he wakes up at night with "sweats". No abdominal pain on exam no dyspnea or shortness of breath with speaking. Will obtain chest x-ray basic screening labs. Patient was on Zithromax within the last month without change in his symptoms. If lab work does not show significant abnormalities anticipate discharge to follow-up with a PCP for further work-up of his complaint TRAVEL OUTSIDE OF THE [place] IN LAST 30 DAYS: No - Related Data Allergies/Adverse Reactions: No Known Allergies Allergy (Verified 03/16/19 20:29) Past Medical History - Social History Smoking Status: Current Every Day Smoker Drug Abuse: None, Marijuana Family History: Arthritis, CVA. denies: CAD, COPD, DM, Hyperlipidemia, Hypertension, Malignancy, Thyroid Disfunction Patient has homicidal ideation: No Renal/ Medical History: Reports: Hx Hydrocele. Denies: Hx Peritoneal Dialysis GI Medical History: Reports: Hx Irritable Bowel Musculoskeletal Medical History: Reports Hx Arthritis, Reports Hx Mu sculoskeletal Trauma Traumatic Medical History: Reports: Hx Fractures Past Surgical History: Reports: Hx Oral Surgery, Hx Orthopedic Surgery - disloca dana ankle repaired 2012, Other - Ophthalmic surgery - Immunizations Immunizations up to date: Yes Hx Diphtheria, Pertussis, Tetanus Vaccination: Yes - 2014 Physical Exam - Vital signs Vitals: Temp 98.6 F 06/10/20 14:05 Course - Re-evaluation Re-evalutation: 07/29/19 16:20 Patient chest x-ray does not show acute findings. Awaiting chemistry but patient's other lab work show a toxicology positive for cocaine and marijuana. 07/29/19 16:43 I went to speak with the patient he is apparently gone outside to smoke a cigarette. Awaiting TSH but all other labs and x-ray studies are essentially not abnormal. If TSH is not abnormal discharge home to follow-up with PCP 07/29/19 16:54 TSH normal will discharge but patient already apparently eloped - Vital Signs Vital signs: Temp Pulse Resp BP Pulse Ox 98.5 F 92 18 135/80 H 98 07/29/19 14:27 07/29/19 14:27 07/29/19 14:27 07/29/19 14:27 07/29/19 14:27 - Laboratory Result Diagrams: 07/29/19 15:35 07/29/19 15:35 Laboratory results interpreted by me: 07/29/19 07/29/19 15:35 15:35 Carbon Dioxide 31 H Anion Gap 4 L Urine Protein 30 H Urine Urobilinogen 2.0 H Urine Ascorbic Acid 20 H Discharge - Discharge Clinical Impression: Flu-like symptoms, Cocaine use, Marijuana use, Eloped from emergency department Condition: Stable Disposition: HOME, SELF-CARE Additional Instructions: Follow-up with a primary care provider for further evaluation of your symptoms. Your chest x-ray and lab work did not show emergent abnormalities you were positive for both cocaine and marijuana stop drug use stop smoking return for any concerns Referrals: ASTRID RUST, [employer] SUPERVISOR-C [COMMUNITY BASED STAFF] - Follow up as needed
[2019-07-29 15:48] LABS: ABSOLUTE EOSINOPHILS # (AUTO) 0.3 10^3/uL (0.0-0.6); ABSOLUTE MONOCYTES (AUTO) 0.5 10^3/uL (0.1-1.4); ABSOLUTE NEUT (AUTO) 3.4 10^3/uL (1.7-8.2); BASOPHILS % (AUTO) 0.9 % (0-2); EOSINOPHILS % (AUTO) 5.8 % (0-6); HEMATOCRIT 44.1 % (37.9-51.0); HEMOGLOBIN 14.8 g/dL (13.5-17.0); LYMPHOCYTES % (AUTO) 19.7 % (13-45); MEAN CORPUSCULAR HEMOGLOBIN 31.4 pg (27.0-33.4); MEAN CORPUSCULAR HGB CONC 33.6 g/dL (32.0-36.0); MEAN CORPUSCULAR VOLUME 93 fl (80-97); MONOCYTES % (AUTO) 9.4 % (3-13); PLATELET COUNT 218 10^3/uL (150-450); RED BLOOD COUNT 4.72 10^6/uL (4.35-5.55); RED CELL DISTRIBUTION WIDTH 12.1 % (11.5-14.0); SEGMENTED NEUTROPHILS % (AUTO) 64.2 % (42-78); TOTAL CELLS COUNTED % (AUTO) 100 %; WHITE BLOOD COUNT 5.2 10^3/uL (4.0-10.5)
[2019-07-29 15:51] LABS: APPEARANCE,URINE CLEAR; BILIRUBIN,URINE NEGATIVE (NEGATIVE); COLOR,URINE YELLOW; GLUCOSE, URINE NEGATIVE (NEGATIVE); KETONES,URINE NEGATIVE (NEGATIVE); LEUKOCYTE ESTERASE,URINE NEGATIVE (NEGATIVE); NITRITE,URINE NEGATIVE (NEGATIVE); PROTEIN,URINE 30 mg/dL (NEGATIVE); URINE SPECIFIC GRAVITY 1.027
[2019-07-29 16:04] LABS: ADD MANUAL MICROSCOPIC YES
[2019-07-29 16:12] LABS: ALBUMIN 4.2 g/dL (3.5-5.0); ALKALINE PHOSPHATASE 52 U/L (38-126); ASPARTATE AMINO TRANSFERASE 20 U/L (17-59); BILIRUBIN,TOTAL 0.3 mg/dL (0.2-1.3); BLOOD UREA NITROGEN 17 mg/dL (7-20); CALCIUM 8.8 mg/dL (8.4-10.2); CARBON DIOXIDE 31 mmol/L (22-30); CHLORIDE 106 mmol/L (98-107); CREATINE KINASE 109 U/L (55-170); GLUCOSE 89 mg/dL (75-110); POTASSIUM 4.6 mmol/L (3.6-5.0); TOTAL PROTEIN 6.7 g/dL (6.3-8.2); URINE AMPHETAMINES SCREEN NEGATIVE; URINE BARBITURATES SCREEN NEGATIVE; URINE BENZODIAZEPINES SCREEN NEGATIVE; URINE METHADONE SCREEN NEGATIVE; URINE PHENCYCLIDINE SCREEN NEGATIVE
[2019-07-29 16:13] LABS: URINE COCAINE SCREEN UNCONFIRMED POSITIVE; URINE MARIJUANA (THC) SCREEN UNCONFIRMED POSITIVE
--- NOTE | 2019-07-29 16:13 | RADIOLOGY REPORT (SQ) ---
EXAM DESCRIPTION: CHEST SINGLE VIEW IMAGES COMPLETED DATE/TIME: 07/29/2019 3:59 pm REASON FOR STUDY: cough COMPARISON: PA and lateral views of the chest from 04/02/2019. EXAM PARAMETERS: NUMBER OF VIEWS: One view. TECHNIQUE: An AP view of the chest was obtained. RADIATION DOSE: NA LIMITATIONS: None. FINDINGS: LUNGS AND PLEURA: No consolidation, pleural effusion or pneumothorax. MEDIASTINUM AND HILAR STRUCTURES: No mediastinal or hilar contour abnormality. HEART AND VASCULAR STRUCTURES: The cardiac silhouette and pulmonary vasculature are within normal zuñiga its. BONES: No acute findings. HARDWARE: None in the chest. OTHER: No other finding. IMPRESSION: No acute cardiopulmonary process. TECHNICAL DOCUMENTATION: JOB ID: [id number] 2010 [employer]- All Rights Reserved Reading location - IP/workstation name: [email or web address]
[2019-07-29 16:19] LABS: ANION GAP 4 (5-19)
[2019-07-29 17:43] VITALS: BP 126/81
--- NOTE | 2019-07-30 07:53 | EKG REPORT ---
SEVERITY:- ABNORMAL ECG - SINUS RHYTHM INCOMPLETE RIGHT BUNDLE BRANCH BLOCK : Confirmed by: Leah Dotson MD 30-Jul-2019 07:53:06
== END 2019-07-29 17:35 | disposition home or self-care (01) ==
LOC: ER 14:05
DX: R05 Cough (principal); R06.02 Shortness of breath; R53.83 Other fatigue; F17.210 Nicotine dependence, cigarettes, uncomplicated; Z20.828 Contact with and (suspected) exposure to other viral communicable diseases; Z53.20 Procedure and treatment not carried out because of patient's decision for unspecified reasons
CPT/HCPCS: 93005; 99284; 36415; 82550; 84443; 85025; 87635; 80053; 81001; 80307; 71045; 93010; C9803